=== PATIENT | male | born 1965 | race Caucasian/White ===

== ENCOUNTER 2021-11-29 01:09 | Inpatient (IN) | payer BC ==
[~2021-11-29] VITALS: Ht 172.7 cm; Wt 77.1 kg
[2021-11-29] VITALS (10 sets, daily range): BP systolic 99–141; BP diastolic 44–62
[2021-11-29] MEDS ORDERED: SODIUM CHLORIDE 0.9% 250ML 250 ML IV ONE ×2 (02:15→18:45)
[2021-11-29 03:01] LABS: INR 1.01; PROTHROMBIN TIME 14.2 seconds (11.9-14.5)
[2021-11-29 03:13] LABS: ALBUMIN 2.6 g/dL (3.5-5.0); ALBUMIN/GLOBULIN RATIO 0.9 (0.8-2.0); ANION GAP 15.8 mmol/L (8-16); CALCIUM 7.9 mg/dL (8.4-10.2); CREATININE, SERUM 2.3 mg/dL (0.72-1.25)
[2021-11-29 03:15] LABS: POTASSIUM 6.8 mmol/L (3.5-5.1)
[2021-11-29] MEDS: SODIUM CHLORIDE 0.9% 1000ML 1,000 ML IV SCH ×2 (03:23→13:02)
[2021-11-29] MEDS ORDERED: SOD POLYSTYRENE SULFONATE SUSP 15 GM/60 ML BTL PO ONE (03:30)
[2021-11-29] MEDS ORDERED: JARDIANCE10 MG PO (04:53)
[2021-11-29] MEDS ORDERED: SIMVASTATIN20 MG PO (04:53)
[2021-11-29] MEDS ORDERED: LOPID600 MG PO (04:53)
[2021-11-29] MEDS ORDERED: DIOVAN160 MG PO (04:53)
[2021-11-29] MEDS ORDERED: METFORMIN HCL500 MG PO (04:53)
[2021-11-29] MEDS ORDERED: DEXTROSE 50% SYRINGE 50 ML IV PRN (05:00)
[2021-11-29 06:53] LABS: BASOPHILS % 0.5 % (0.0-1.0); EOSINOPHILS % 0.3 % (0.0-6.0); LYMPHOCYTES # (AUTO) 1.3 (1.0-3.2); LYMPHOCYTES % 14.7 % (18.0-39.1); MEAN CORPUSCULAR HEMOGLOBIN 21.3 pg (28-32); MEAN CORPUSCULAR HGB CONC 26.5 g/dL (31-35); MEAN CORPUSCULAR VOLUME 80.4 fL (81-99); MONOCYTES # (AUTO) 0.8 (0.2-0.8); MONOCYTES % 9.6 % (4.4-11.3); NEUTROPHILS # (AUTO) 6.5 (2.1-6.9); NEUTROPHILS % 74.6 % (38.7-80.0); PLATELET COUNT 366 x10e3/uL (140-360); RED BLOOD COUNT 2.35 x10e6/uL (4.3-5.7); RED CELL DISTRIBUTION WIDTH 18.6 % (11.7-14.4)
[2021-11-29 06:57] LABS: HEMATOCRIT 18.9 % (38.2-49.6)
[2021-11-29] MEDS ORDERED: SODIUM CHLORIDE 0.9% 250ML 250 ML ONE ×2 (08:27→20:20)
[2021-11-29] MEDS ORDERED: VALSARTAN 160 MG TAB PO SCH (09:00)
[2021-11-29] MEDS ORDERED: METFORMIN HCL 500 MG TAB PO SCH (09:00)
[2021-11-29] MEDS ORDERED: EMPAGLIFLOZIN 10 MG TABLET PO SCH (09:00)
[2021-11-29] MEDS ORDERED: GEMFIBROZIL 600 MG TAB PO SCH (09:00)
[2021-11-29] MEDS: INSULIN LISPRO 100 UNIT/1 ML 3ML VIAL SQ SCH ×4 (09:51→21:25)
[2021-11-29] MEDS ORDERED: STERILE WATER IV SCH (15:00)
[2021-11-29] MEDS ORDERED: SODIUM BICARBONATE IV SCH (15:00)
[2021-11-29] MEDS: SODIUM BICARBONATE 8.4% 150 ML in STERILE WATER IV SOLN 1,000 ML IV SCH (15:30)
[2021-11-29 16:05] LABS: ANION GAP 15.2 mmol/L (8-16); CALCIUM 7.9 mg/dL (8.4-10.2); CREATININE, SERUM 2.02 mg/dL (0.72-1.25)
[2021-11-29 16:10] LABS: POTASSIUM 6.2 mmol/L (3.5-5.1)
[2021-11-29 16:14] LABS: BASOPHILS # (AUTO) 0.1 (0.0-0.1); BASOPHILS % 0.5 % (0.0-1.0); EOSINOPHILS # (AUTO) 0.1 (0.0-0.4); EOSINOPHILS % 1.4 % (0.0-6.0); LYMPHOCYTES # (AUTO) 1.6 (1.0-3.2); LYMPHOCYTES % 16.7 % (18.0-39.1); MEAN CORPUSCULAR HEMOGLOBIN 22.6 pg (28-32); MEAN CORPUSCULAR HGB CONC 28.3 g/dL (31-35); MEAN CORPUSCULAR VOLUME 79.7 fL (81-99); MONOCYTES # (AUTO) 0.9 (0.2-0.8); MONOCYTES % 9.5 % (4.4-11.3); NEUTROPHILS # (AUTO) 6.9 (2.1-6.9); NEUTROPHILS % 71.5 % (38.7-80.0); PLATELET COUNT 354 x10e3/uL (140-360); RED BLOOD COUNT 3.01 x10e6/uL (4.3-5.7); RED CELL DISTRIBUTION WIDTH 18.6 % (11.7-14.4)
[2021-11-29 16:19] LABS: HEMOGLOBIN 6.8 g/dL (14.0-18.0)
[2021-11-29] MEDS ORDERED: DEXTROSE 50% SYRINGE 50 ML IV STA (16:26)
[2021-11-29] MEDS ORDERED: INSULIN REGULAR, HUMAN 100 UNIT/1 ML SQ STA (16:26)
[2021-11-29] MEDS ORDERED: CALCIUM GLUC 1 G/50 ML NACL 50 ML IV ONE (17:00)
[2021-11-29] MEDS ORDERED: LACTULOSE SYRUP 20 GM/30 ML UDC PO ONE (17:00)
[2021-11-29] MEDS ORDERED: SOD POLYSTYRENE SULFONATE SUSP 15 GM/60 ML BTL PR ONE (17:00)
[2021-11-29] MEDS: SIMVASTATIN 20 MG TAB PO SCH (20:28)
[2021-11-29] MEDS: INSULIN GLARGINE 100 UNITS/ML VIAL SQ SCH (21:25)
[2021-11-30] VITALS (7 sets, daily range): BP systolic 98–112; BP diastolic 52–59
[2021-11-30 01:39] LABS: FERRITIN 24.24 ng/mL (21.81-274.66)
[2021-11-30] MEDS: SODIUM BICARBONATE 8.4% 150 ML in STERILE WATER IV SOLN 1,000 ML IV SCH ×2 (06:40→22:16)
[2021-11-30 07:06] LABS: ALBUMIN 2.6 g/dL (3.5-5.0); ALBUMIN/GLOBULIN RATIO 0.8 (0.8-2.0); ANION GAP 13.3 mmol/L (8-16); CALCIUM 8.1 mg/dL (8.4-10.2); CREATININE, SERUM 1.73 mg/dL (0.72-1.25); POTASSIUM 5.3 mmol/L (3.5-5.1)
[2021-11-30] MEDS: INSULIN LISPRO 100 UNIT/1 ML 3ML VIAL SQ SCH ×4 (07:30→21:00)
[2021-11-30] MEDS ORDERED: LACTULOSE SYRUP 20 GM/30 ML UDC PO ONE (10:45)
[2021-11-30] MEDS ORDERED: SOD POLYSTYRENE SULFONATE SUSP 15 GM/60 ML BTL PO ONE (10:45)
[2021-11-30 15:45] LABS: FREE T4 (FREE THYROXINE) 0.79 ng/dL (0.8-1.8); THYROID STIMULATING HORMONE 2.389 uIU/mL (0.350-4.940)
[2021-11-30] MEDS: SODIUM BICARBONATE 650 MG TAB PO SCH ×2 (18:29→22:30)
[2021-11-30] MEDS: INSULIN GLARGINE 100 UNITS/ML VIAL SQ SCH (21:00)
[2021-11-30] MEDS: SIMVASTATIN 20 MG TAB PO SCH (22:30)
[2021-12-01] VITALS (7 sets, daily range): BP systolic 93–114; BP diastolic 49–64
[2021-12-01 06:59] LABS: BASOPHILS # (AUTO) 0.1 (0.0-0.1); BASOPHILS % 0.8 % (0.0-1.0); EOSINOPHILS # (AUTO) 0.2 (0.0-0.4); EOSINOPHILS % 2.6 % (0.0-6.0); HEMATOCRIT 24.2 % (38.2-49.6); HEMOGLOBIN 7.3 g/dL (14.0-18.0); LYMPHOCYTES # (AUTO) 1.3 (1.0-3.2); LYMPHOCYTES % 17.1 % (18.0-39.1); MEAN CORPUSCULAR HEMOGLOBIN 23.2 pg (28-32); MEAN CORPUSCULAR HGB CONC 30.2 g/dL (31-35); MEAN CORPUSCULAR VOLUME 76.8 fL (81-99); MONOCYTES # (AUTO) 0.7 (0.2-0.8); MONOCYTES % 9.6 % (4.4-11.3); NEUTROPHILS # (AUTO) 5.3 (2.1-6.9); NEUTROPHILS % 69.6 % (38.7-80.0); PLATELET COUNT 302 x10e3/uL (140-360); RED BLOOD COUNT 3.15 x10e6/uL (4.3-5.7); RED CELL DISTRIBUTION WIDTH 18.4 % (11.7-14.4)
[2021-12-01 07:09] LABS: ANION GAP 14.5 mmol/L (8-16); CREATININE, SERUM 1.56 mg/dL (0.72-1.25); POTASSIUM 4.5 mmol/L (3.5-5.1)
[2021-12-01] MEDS: INSULIN LISPRO 100 UNIT/1 ML 3ML VIAL SQ SCH ×4 (07:30→20:20)
[2021-12-01] MEDS: SODIUM BICARBONATE 650 MG TAB PO SCH ×3 (08:46→21:24)
[2021-12-01] MEDS: PANTOPRAZOLE SOD 40 MG TABEC PO SCH (08:47)
[2021-12-01] MEDS: SODIUM FERRIC GLUCONATE COMPLX 125 MG in SODIUM CHLORIDE 0.9% 100 ML IV SCH (08:48)
[2021-12-01] MEDS ORDERED: SODIUM CHLORIDE 0.9% 250ML 250 ML IV ONE (16:45)
[2021-12-01] MEDS ORDERED: BISACODYL 5 MG TAB EC PO ONE (20:00)
[2021-12-01] MEDS: INSULIN GLARGINE 100 UNITS/ML VIAL SQ SCH (20:20)
[2021-12-01] MEDS: SIMVASTATIN 20 MG TAB PO SCH (21:24)
[2021-12-01] MEDS ORDERED: CITRATE OF MAGNESIA 300ML BOTTLE PO ONE (23:00)
[2021-12-02] VITALS (8 sets, daily range): BP systolic 110–119; BP diastolic 57–65
[2021-12-02 06:13] LABS: BASOPHILS # (AUTO) 0.1 (0.0-0.1); BASOPHILS % 0.9 % (0.0-1.0); EOSINOPHILS # (AUTO) 0.2 (0.0-0.4); EOSINOPHILS % 2.1 % (0.0-6.0); HEMATOCRIT 33.9 % (38.2-49.6); LYMPHOCYTES # (AUTO) 2.2 (1.0-3.2); LYMPHOCYTES % 19.7 % (18.0-39.1); MEAN CORPUSCULAR HEMOGLOBIN 23.8 pg (28-32); MEAN CORPUSCULAR HGB CONC 29.5 g/dL (31-35); MEAN CORPUSCULAR VOLUME 80.7 fL (81-99); MONOCYTES % 9.3 % (4.4-11.3); NEUTROPHILS # (AUTO) 7.4 (2.1-6.9); NEUTROPHILS % 67.6 % (38.7-80.0); PLATELET COUNT 396 x10e3/uL (140-360); RED CELL DISTRIBUTION WIDTH 18.9 % (11.7-14.4)
[2021-12-02 06:41] LABS: ALBUMIN 3.1 g/dL (3.5-5.0); ALBUMIN/GLOBULIN RATIO 0.8 (0.8-2.0); ANION GAP 17.2 mmol/L (8-16); CALCIUM 8.4 mg/dL (8.4-10.2); CREATININE, SERUM 1.73 mg/dL (0.72-1.25); POTASSIUM 4.2 mmol/L (3.5-5.1)
[2021-12-02] MEDS ORDERED: CITRATE OF MAGNESIA 300ML BOTTLE PO ONE (07:00)
[2021-12-02] MEDS: PANTOPRAZOLE SOD 40 MG TABEC PO SCH (07:30)
[2021-12-02] MEDS: INSULIN LISPRO 100 UNIT/1 ML 3ML VIAL SQ SCH ×4 (07:30→21:30)
[2021-12-02] MEDS: SODIUM BICARBONATE 650 MG TAB PO SCH ×3 (08:35→21:30)
[2021-12-02] MEDS: SODIUM FERRIC GLUCONATE COMPLX 125 MG in SODIUM CHLORIDE 0.9% 100 ML IV SCH (09:00)
[2021-12-02] MEDS ORDERED: HYOSCYAMINE SULFATE 0.5 MG/ML INJ ONE (11:31)
[2021-12-02] MEDS ORDERED: MIDAZOLAM HCL 2 MG/2 ML VIAL ONE (13:44)
[2021-12-02] MEDS ORDERED: PROPOFOL IV EMULSION 10 MG/ML 20 ML VIAL ONE (13:44)
[2021-12-02] MEDS ORDERED: LIDOCAINE HCL 2% LOCAL INJ 5 ML SDV VIAL INJ ONE (13:44)
[2021-12-02] MEDS ORDERED: FENTANYL CITRATE/PF 100MCG/2 ML INJ ONE (13:44)
[2021-12-02] MEDS ORDERED: SODIUM CHLORIDE 0.9% 1000ML 1,000 ML IV ONE (14:30)
[2021-12-02] MEDS ORDERED: IOPAMIDOL 370 MG/ML 100 ML INFUS..BTL INJ ONE (14:56)
[2021-12-02] MEDS: INSULIN GLARGINE 100 UNITS/ML VIAL SQ SCH (21:30)
[2021-12-02] MEDS: SIMVASTATIN 20 MG TAB PO SCH (21:30)
[2021-12-03] VITALS (8 sets, daily range): BP systolic 107–125; BP diastolic 52–64
[2021-12-03 07:15] LABS: BASOPHILS # (AUTO) 0.1 (0.0-0.1); BASOPHILS % 0.7 % (0.0-1.0); EOSINOPHILS # (AUTO) 0.2 (0.0-0.4); EOSINOPHILS % 2.1 % (0.0-6.0); HEMATOCRIT 29.6 % (38.2-49.6); HEMOGLOBIN 8.7 g/dL (14.0-18.0); LYMPHOCYTES # (AUTO) 1.3 (1.0-3.2); LYMPHOCYTES % 16.3 % (18.0-39.1); MEAN CORPUSCULAR HEMOGLOBIN 23.7 pg (28-32); MEAN CORPUSCULAR HGB CONC 29.4 g/dL (31-35); MEAN CORPUSCULAR VOLUME 80.7 fL (81-99); MONOCYTES # (AUTO) 0.8 (0.2-0.8); NEUTROPHILS # (AUTO) 5.7 (2.1-6.9); NEUTROPHILS % 70.5 % (38.7-80.0); PLATELET COUNT 293 x10e3/uL (140-360); RED BLOOD COUNT 3.67 x10e6/uL (4.3-5.7); RED CELL DISTRIBUTION WIDTH 19.4 % (11.7-14.4)
[2021-12-03] MEDS: INSULIN LISPRO 100 UNIT/1 ML 3ML VIAL SQ SCH ×4 (07:30→21:30)
[2021-12-03 07:38] LABS: ANION GAP 14.4 mmol/L (8-16); CALCIUM 8.1 mg/dL (8.4-10.2); CREATININE, SERUM 1.53 mg/dL (0.72-1.25); POTASSIUM 5.4 mmol/L (3.5-5.1)
[2021-12-03] MEDS: SODIUM FERRIC GLUCONATE COMPLX 125 MG in SODIUM CHLORIDE 0.9% 100 ML IV SCH (08:29)
[2021-12-03] MEDS: PANTOPRAZOLE SOD 40 MG TABEC PO SCH (08:29)
[2021-12-03] MEDS: SODIUM BICARBONATE 650 MG TAB PO SCH ×3 (08:29→21:37)
[2021-12-03] MEDS: INSULIN GLARGINE 100 UNITS/ML VIAL SQ SCH (21:30)
[2021-12-03] MEDS: SIMVASTATIN 20 MG TAB PO SCH (21:37)
[2021-12-04] VITALS (8 sets, daily range): BP systolic 111–125; BP diastolic 55–65
[2021-12-04] MEDS ORDERED: FOLIC ACID 1 MG TAB PO ONE (01:00)
[2021-12-04] MEDS ORDERED: CYANOCOBALAMIN INJ 1,000 MCG/ML VIAL IM ONE (01:00)
[2021-12-04 06:01] LABS: BASOPHILS # (AUTO) 0.1 (0.0-0.1); BASOPHILS % 0.6 % (0.0-1.0); EOSINOPHILS # (AUTO) 0.2 (0.0-0.4); EOSINOPHILS % 2.3 % (0.0-6.0); HEMATOCRIT 30.1 % (38.2-49.6); HEMOGLOBIN 8.8 g/dL (14.0-18.0); LYMPHOCYTES # (AUTO) 1.4 (1.0-3.2); LYMPHOCYTES % 16.5 % (18.0-39.1); MEAN CORPUSCULAR HEMOGLOBIN 23.7 pg (28-32); MEAN CORPUSCULAR HGB CONC 29.2 g/dL (31-35); MEAN CORPUSCULAR VOLUME 81.1 fL (81-99); MONOCYTES # (AUTO) 0.8 (0.2-0.8); MONOCYTES % 9.4 % (4.4-11.3); NEUTROPHILS # (AUTO) 5.8 (2.1-6.9); NEUTROPHILS % 70.8 % (38.7-80.0); PLATELET COUNT 273 x10e3/uL (140-360); RED BLOOD COUNT 3.71 x10e6/uL (4.3-5.7); RED CELL DISTRIBUTION WIDTH 20.1 % (11.7-14.4)
[2021-12-04 06:26] LABS: ANION GAP 13.9 mmol/L (8-16); CALCIUM 8.6 mg/dL (8.4-10.2); CREATININE, SERUM 1.46 mg/dL (0.72-1.25); POTASSIUM 4.9 mmol/L (3.5-5.1)
[2021-12-04] MEDS: INSULIN LISPRO 100 UNIT/1 ML 3ML VIAL SQ SCH ×4 (07:30→21:00)
[2021-12-04] MEDS: FOLIC ACID 1 MG TAB PO SCH (07:59)
[2021-12-04] MEDS: SODIUM BICARBONATE 650 MG TAB PO SCH ×3 (07:59→21:45)
[2021-12-04] MEDS: PANTOPRAZOLE SOD 40 MG TABEC PO SCH (07:59)
[2021-12-04] MEDS: CYANOCOBALAMIN INJ 1,000 MCG/ML VIAL IM SCH (08:00)
[2021-12-04] MEDS: IRON SUCROSE 100 MG in SODIUM CHLORIDE 0.9% 100 ML IV SCH (08:00)
[2021-12-04] MEDS: INSULIN GLARGINE 100 UNITS/ML VIAL SQ SCH (21:00)
[2021-12-04] MEDS: SIMVASTATIN 20 MG TAB PO SCH (21:45)
[2021-12-05] VITALS (7 sets, daily range): BP systolic 113–124; BP diastolic 53–64
[2021-12-05] MEDS: INSULIN LISPRO 100 UNIT/1 ML 3ML VIAL SQ SCH ×4 (07:30→21:00)
[2021-12-05] MEDS: SODIUM BICARBONATE 650 MG TAB PO SCH ×3 (10:02→21:00)
[2021-12-05] MEDS: PANTOPRAZOLE SOD 40 MG TABEC PO SCH (10:02)
[2021-12-05] MEDS: FOLIC ACID 1 MG TAB PO SCH (10:02)
[2021-12-05] MEDS: IRON SUCROSE 100 MG in SODIUM CHLORIDE 0.9% 100 ML IV SCH (10:02)
[2021-12-05] MEDS: CYANOCOBALAMIN INJ 1,000 MCG/ML VIAL IM SCH (10:03)
[2021-12-05] MEDS ORDERED: MAGNESIUM HYDROXIDE 30 ML UDC PO ONE (18:20)
[2021-12-05] MEDS: INSULIN GLARGINE 100 UNITS/ML VIAL SQ SCH (21:00)
[2021-12-05] MEDS: SIMVASTATIN 20 MG TAB PO SCH (21:00)
[2021-12-06] VITALS (13 sets, daily range): BP systolic 89–123; BP diastolic 51–65
[2021-12-06] MEDS: INSULIN LISPRO 100 UNIT/1 ML 3ML VIAL SQ SCH ×4 (07:30→23:46)
[2021-12-06] MEDS: PANTOPRAZOLE SOD 40 MG TABEC PO SCH (07:30)
[2021-12-06] MEDS: IRON SUCROSE 100 MG in SODIUM CHLORIDE 0.9% 100 ML IV SCH (08:12)
[2021-12-06] MEDS: CYANOCOBALAMIN INJ 1,000 MCG/ML VIAL IM SCH (08:12)
[2021-12-06] MEDS: FOLIC ACID 1 MG TAB PO SCH (09:00)
[2021-12-06] MEDS: DEXTROSE 5%/0.9% SOD CHL 1,000 ML IV SCH ×2 (11:19→23:30)
[2021-12-06] MEDS ORDERED: SEVOFLURANE INHAL SOLN 250 ML PEN BTL ONE (12:16)
[2021-12-06] MEDS ORDERED: POVIDONE IODINE 0.05% 0.05 % ML PO ONE (12:16)
[2021-12-06] MEDS ORDERED: LIDOCAINE HCL 2% LOCAL INJ 5 ML SDV VIAL INJ ONE (12:16)
[2021-12-06] MEDS ORDERED: PHENYLEPHRINE HCL 1% 10 MG/ML VIAL ONE (12:16)
[2021-12-06] MEDS ORDERED: ONDANSETRON HCL INJ 2MG/ML 2ML 2 MG/ML VIAL ONE (12:16)
[2021-12-06] MEDS ORDERED: PROPOFOL IV EMULSION 10 MG/ML 20 ML VIAL ONE (12:16)
[2021-12-06] MEDS ORDERED: DEXAMETHASONE SOD PHOS INJ 4 MG/ML SDV ONE (12:16)
[2021-12-06] MEDS ORDERED: ROCURONIUM BROMIDE 10 MG/ML 5ML VIAL IV ONE (12:16)
[2021-12-06] MEDS ORDERED: FENTANYL CITRATE/PF 100MCG/2 ML INJ ONE (13:54)
[2021-12-06] MEDS ORDERED: MIDAZOLAM HCL 2 MG/2 ML VIAL ONE (13:54)
[2021-12-06] MEDS ORDERED: HEPARIN SOD/SOD CHLORIDE 1,000 ML ONE (14:37)
[2021-12-06] MEDS ORDERED: SODIUM CHLORIDE 0.9% 100 ML ONE (16:54)
[2021-12-06] MEDS ORDERED: MANNITOL 25% 12.5GM/50ML 0 ML ONE (16:59)
[2021-12-06] MEDS ORDERED: Vancomycin IV 1 GM VIAL ONE (17:01)
[2021-12-06] MEDS: SIMVASTATIN 20 MG TAB PO SCH (21:00)
[2021-12-06] MEDS ORDERED: SUGAMMADEX SODIUM 200 MG/2 ML VIAL IV ONE (21:26)
[2021-12-06] MEDS ORDERED: DIPHENHYDRAMINE HCL INJ 50 MG/ML VIAL IM PRN (21:45)
[2021-12-06] MEDS ORDERED: ACETAMINOPHEN 1000 MG/100 ML IV PRN (21:45)
[2021-12-06] MEDS ORDERED: ONDANSETRON HCL INJ 2MG/ML 2ML 2 MG/ML VIAL IV PRN (21:45)
[2021-12-06] MEDS ORDERED: NALOXONE HCL INJ 0.4 MG/ML AMP IV PRN (21:45)
[2021-12-06] MEDS: SODIUM CHLORIDE 0.9% 250ML IRRIG IR SCH (22:55)
[2021-12-06] MEDS: MORPHINE SULFATE 1 MG/ML 30ML PCA IV PRN (23:24)
[2021-12-06 23:36] LABS: BASOPHILS % 0.3 % (0.0-1.0); HEMATOCRIT 35.2 % (38.2-49.6); HEMOGLOBIN 10.7 g/dL (14.0-18.0); LYMPHOCYTES # (AUTO) 0.7 (1.0-3.2); LYMPHOCYTES % 4.6 % (18.0-39.1); MEAN CORPUSCULAR HEMOGLOBIN 27.1 pg (28-32); MEAN CORPUSCULAR HGB CONC 30.4 g/dL (31-35); MEAN CORPUSCULAR VOLUME 89.1 fL (81-99); MONOCYTES # (AUTO) 0.9 (0.2-0.8); MONOCYTES % 5.5 % (4.4-11.3); NEUTROPHILS # (AUTO) 13.9 (2.1-6.9); NEUTROPHILS % 89.3 % (38.7-80.0); PLATELET COUNT 300 x10e3/uL (140-360); RED BLOOD COUNT 3.95 x10e6/uL (4.3-5.7); RED CELL DISTRIBUTION WIDTH 19.3 % (11.7-14.4)
[2021-12-06] MEDS: INSULIN GLARGINE 100 UNITS/ML VIAL SQ SCH (23:45)
[2021-12-06] MEDS: SODIUM CHLORIDE 0.9% 1000ML 1,000 ML IV SCH (23:49)
[2021-12-06 23:56] LABS: ANION GAP 17.2 mmol/L (8-16); CREATININE, SERUM 1.69 mg/dL (0.72-1.25)
[2021-12-06 23:57] LABS: CALCIUM 6.6 mg/dL (8.4-10.2); POTASSIUM 5.2 mmol/L (3.5-5.1)
[2021-12-07] VITALS (20 sets, daily range): BP systolic 88–127; BP diastolic 49–92
[2021-12-07] MEDS ORDERED: CALCIUM CHLORIDE 10% 1.36 MEQ/ML 10ML SYR IV STA (00:22)
[2021-12-07] MEDS ORDERED: SODIUM CHLORIDE 0.9% IV ONE ×2 (00:30→00:45)
[2021-12-07] MEDS ORDERED: CALCIUM CHLORIDE IV ONE (00:45)
[2021-12-07] MEDS ORDERED: CALCIUM CHLORIDE 10% SYRINGE 20 ML IV ONE (01:05)
[2021-12-07] MEDS: SODIUM CHLORIDE 0.9% 250ML IRRIG IR SCH ×5 (02:14→21:51)
[2021-12-07] MEDS: MORPHINE SULFATE 1 MG/ML 30ML PCA IV PRN ×2 (05:21→19:00)
[2021-12-07] MEDS: SODIUM CHLORIDE 0.9% 1000ML 1,000 ML IV SCH (05:24)
[2021-12-07] MEDS ORDERED: MORPHINE SULFATE 1 MG/ML 30ML PCA ONE (05:26)
[2021-12-07 05:47] LABS: BASOPHILS % 0.1 % (0.0-1.0); HEMATOCRIT 33.8 % (38.2-49.6); HEMOGLOBIN 10.5 g/dL (14.0-18.0); LYMPHOCYTES # (AUTO) 0.8 (1.0-3.2); LYMPHOCYTES % 5.1 % (18.0-39.1); MEAN CORPUSCULAR HEMOGLOBIN 27.8 pg (28-32); MEAN CORPUSCULAR HGB CONC 31.1 g/dL (31-35); MEAN CORPUSCULAR VOLUME 89.4 fL (81-99); MONOCYTES # (AUTO) 0.8 (0.2-0.8); MONOCYTES % 5.3 % (4.4-11.3); NEUTROPHILS # (AUTO) 14.3 (2.1-6.9); NEUTROPHILS % 89.2 % (38.7-80.0); PLATELET COUNT 269 x10e3/uL (140-360); RED BLOOD COUNT 3.78 x10e6/uL (4.3-5.7); RED CELL DISTRIBUTION WIDTH 19.9 % (11.7-14.4)
[2021-12-07 06:22] LABS: ALBUMIN 2.1 g/dL (3.5-5.0); ALBUMIN/GLOBULIN RATIO 0.8 (0.8-2.0); CALCIUM 7.6 mg/dL (8.4-10.2); CREATININE, SERUM 2.06 mg/dL (0.72-1.25); MAGNESIUM 1.6 MG/DL (1.3-2.1); PHOSPHORUS 6.7 MG/DL (2.3-4.7)
[2021-12-07] MEDS: INSULIN LISPRO 100 UNIT/1 ML 3ML VIAL SQ SCH ×3 (07:30→18:21)
[2021-12-07] MEDS: PANTOPRAZOLE SOD 40 MG TABEC PO SCH (07:30)
[2021-12-07] MEDS: FOLIC ACID 1 MG TAB PO SCH (07:46)
[2021-12-07] MEDS: IRON SUCROSE 100 MG in SODIUM CHLORIDE 0.9% 100 ML IV SCH (09:31)
[2021-12-07] MEDS: CYANOCOBALAMIN INJ 1,000 MCG/ML VIAL IM SCH (09:36)
[2021-12-07] MEDS ORDERED: DEXTROSE 50% SYRINGE 50 ML IV STA (11:25)
[2021-12-07] MEDS ORDERED: SODIUM CHLORIDE 0.9% 1000ML 1,000 ML IV SCH (11:30)
[2021-12-07] MEDS ORDERED: MAGNESIUM SULFATE 2GM/50ML 50 ML IV ONE (11:45)
[2021-12-07 11:48] LABS: BASOPHILS % 0.2 % (0.0-1.0); HEMOGLOBIN 10.3 g/dL (14.0-18.0); LYMPHOCYTES # (AUTO) 1.4 (1.0-3.2); LYMPHOCYTES % 9.3 % (18.0-39.1); MEAN CORPUSCULAR HEMOGLOBIN 27.2 pg (28-32); MEAN CORPUSCULAR HGB CONC 30.3 g/dL (31-35); MEAN CORPUSCULAR VOLUME 89.9 fL (81-99); MONOCYTES # (AUTO) 1.2 (0.2-0.8); NEUTROPHILS # (AUTO) 12.1 (2.1-6.9); NEUTROPHILS % 82.2 % (38.7-80.0); PLATELET COUNT 283 x10e3/uL (140-360); RED BLOOD COUNT 3.78 x10e6/uL (4.3-5.7)
[2021-12-07 12:05] LABS: ANION GAP 14.1 mmol/L (8-16); CALCIUM 7.6 mg/dL (8.4-10.2); CREATININE, SERUM 2.46 mg/dL (0.72-1.25)
[2021-12-07 12:08] LABS: POTASSIUM 6.1 mmol/L (3.5-5.1)
[2021-12-07] MEDS ORDERED: INSULIN REGULAR, HUMAN 100 UNIT/1 ML IV ONE (12:30)
[2021-12-07] MEDS: SODIUM BICARBONATE 8.4% SYRING 150 ML in DEXTROSE 5% 1,000 ML IV SCH (13:48)
[2021-12-07 18:07] LABS: ALBUMIN/GLOBULIN RATIO 0.8 (0.8-2.0); ANION GAP 12.4 mmol/L (8-16); CALCIUM 7.4 mg/dL (8.4-10.2); CREATININE, SERUM 2.5 mg/dL (0.72-1.25)
[2021-12-07 18:14] LABS: POTASSIUM 5.4 mmol/L (3.5-5.1)
[2021-12-07] MEDS ORDERED: SODIUM CHLORIDE 0.9% 500ML 500 ML IV ONE (19:30)
[2021-12-07] MEDS: SIMVASTATIN 20 MG TAB PO SCH (20:39)
[2021-12-07] MEDS: INSULIN GLARGINE 100 UNITS/ML VIAL SQ SCH (20:49)
[2021-12-08] VITALS (47 sets, daily range): BP systolic 77–130; BP diastolic 45–87
[2021-12-08] MEDS: SODIUM BICARBONATE 8.4% SYRING 150 ML in DEXTROSE 5% 1,000 ML IV SCH ×2 (01:26→12:36)
[2021-12-08] MEDS: SODIUM CHLORIDE 0.9% 250ML IRRIG IR SCH ×6 (01:27→22:00)
[2021-12-08 05:01] LABS: BASOPHILS % 0.3 % (0.0-1.0); EOSINOPHILS # (AUTO) 0.1 (0.0-0.4); EOSINOPHILS % 0.5 % (0.0-6.0); HEMATOCRIT 26.2 % (38.2-49.6); HEMOGLOBIN 8.2 g/dL (14.0-18.0); LYMPHOCYTES # (AUTO) 0.8 (1.0-3.2); LYMPHOCYTES % 8.2 % (18.0-39.1); MEAN CORPUSCULAR HEMOGLOBIN 27.7 pg (28-32); MEAN CORPUSCULAR HGB CONC 31.3 g/dL (31-35); MEAN CORPUSCULAR VOLUME 88.5 fL (81-99); MONOCYTES # (AUTO) 0.8 (0.2-0.8); MONOCYTES % 7.7 % (4.4-11.3); NEUTROPHILS # (AUTO) 8.5 (2.1-6.9); PLATELET COUNT 195 x10e3/uL (140-360); RED BLOOD COUNT 2.96 x10e6/uL (4.3-5.7); RED CELL DISTRIBUTION WIDTH 20.8 % (11.7-14.4)
[2021-12-08 05:24] LABS: CALCIUM 7.3 mg/dL (8.4-10.2); CREATININE, SERUM 2.26 mg/dL (0.72-1.25)
[2021-12-08] MEDS: INSULIN LISPRO 100 UNIT/1 ML 3ML VIAL SQ SCH ×4 (05:59→18:00)
[2021-12-08] MEDS: PANTOPRAZOLE SOD 40 MG TABEC PO SCH (07:25)
[2021-12-08] MEDS: FOLIC ACID 1 MG TAB PO SCH (09:00)
[2021-12-08] MEDS: CYANOCOBALAMIN INJ 1,000 MCG/ML VIAL IM SCH (09:16)
[2021-12-08] MEDS: IRON SUCROSE 100 MG in SODIUM CHLORIDE 0.9% 100 ML IV SCH (09:17)
[2021-12-08] MEDS ORDERED: SODIUM CHLORIDE 0.9% 1000ML 1,000 ML IV SCH (09:45)
[2021-12-08] MEDS ORDERED: SODIUM CHLORIDE 0.9% 1000ML 1,000 ML IV ONE (11:15)
[2021-12-08 15:05] LABS: ALBUMIN 1.8 g/dL (3.5-5.0); ALBUMIN/GLOBULIN RATIO 0.7 (0.8-2.0); ANION GAP 12.4 mmol/L (8-16); CALCIUM 7.3 mg/dL (8.4-10.2); CREATININE, SERUM 2.21 mg/dL (0.72-1.25)
[2021-12-08 15:10] LABS: POTASSIUM 5.4 mmol/L (3.5-5.1)
[2021-12-08] MEDS ORDERED: ALBUMIN 5% 0.05 GM/ML BTL IV ONE (16:00)
[2021-12-08] MEDS ORDERED: ALBUMIN 5% 250ML 500 ML IV ONE (16:30)
[2021-12-08] MEDS ORDERED: BUMETANIDE INJ 0.25MG/ML 4ML VIAL IV ONE (17:00)
[2021-12-08] MEDS: SIMVASTATIN 20 MG TAB PO SCH (21:00)
[2021-12-08] MEDS: INSULIN GLARGINE 100 UNITS/ML VIAL SQ SCH (21:06)
[2021-12-09] VITALS (29 sets, daily range): BP systolic 93–138; BP diastolic 43–65
[2021-12-09] MEDS: SODIUM BICARBONATE 8.4% SYRING 150 ML in DEXTROSE 5% 1,000 ML IV SCH (00:43)
[2021-12-09] MEDS: MORPHINE SULFATE 1 MG/ML 30ML PCA IV PRN (01:41)
[2021-12-09] MEDS: SODIUM CHLORIDE 0.9% 250ML IRRIG IR SCH ×4 (02:13→13:25)
[2021-12-09 05:51] LABS: BASOPHILS % 0.6 % (0.0-1.0); EOSINOPHILS # (AUTO) 0.2 (0.0-0.4); EOSINOPHILS % 2.6 % (0.0-6.0); HEMATOCRIT 23.9 % (38.2-49.6); HEMOGLOBIN 7.1 g/dL (14.0-18.0); LYMPHOCYTES # (AUTO) 0.8 (1.0-3.2); LYMPHOCYTES % 11.6 % (18.0-39.1); MEAN CORPUSCULAR HEMOGLOBIN 26.9 pg (28-32); MEAN CORPUSCULAR HGB CONC 29.7 g/dL (31-35); MEAN CORPUSCULAR VOLUME 90.5 fL (81-99); MONOCYTES # (AUTO) 0.6 (0.2-0.8); MONOCYTES % 8.7 % (4.4-11.3); NEUTROPHILS # (AUTO) 5.5 (2.1-6.9); NEUTROPHILS % 76.4 % (38.7-80.0); PLATELET COUNT 171 x10e3/uL (140-360); RED BLOOD COUNT 2.64 x10e6/uL (4.3-5.7); RED CELL DISTRIBUTION WIDTH 20.7 % (11.7-14.4)
[2021-12-09] MEDS: INSULIN LISPRO 100 UNIT/1 ML 3ML VIAL SQ SCH ×5 (06:00→23:28)
[2021-12-09 06:16] LABS: ALBUMIN/GLOBULIN RATIO 0.9 (0.8-2.0); CALCIUM 7.1 mg/dL (8.4-10.2); CREATININE, SERUM 1.87 mg/dL (0.72-1.25); MAGNESIUM 1.6 MG/DL (1.3-2.1); PHOSPHORUS 3.5 MG/DL (2.3-4.7)
[2021-12-09] MEDS: FOLIC ACID 1 MG TAB PO SCH (07:25)
[2021-12-09] MEDS: PANTOPRAZOLE SOD 40 MG TABEC PO SCH (07:25)
[2021-12-09] MEDS ORDERED: SODIUM CHLORIDE 0.9% 1000ML 1,000 ML IV ONE (08:30)
[2021-12-09] MEDS: DEXTROSE 5%/0.9% SOD CHL 1,000 ML IV SCH ×2 (08:47→19:20)
[2021-12-09] MEDS: CYANOCOBALAMIN INJ 1,000 MCG/ML VIAL IM SCH (08:47)
[2021-12-09] MEDS ORDERED: MORPHINE SULFATE 1 MG/ML 30ML PCA IV PRN (15:15)
[2021-12-09] MEDS: SIMVASTATIN 20 MG TAB PO SCH (20:58)
[2021-12-09] MEDS: BISACODYL 10 MG SUPP PR SCH (21:05)
[2021-12-09] MEDS: INSULIN GLARGINE 100 UNITS/ML VIAL SQ SCH (21:06)
[2021-12-10] VITALS (24 sets, daily range): BP systolic 93–117; BP diastolic 37–70
[2021-12-10] MEDS: DEXTROSE 5%/0.9% SOD CHL 1,000 ML IV SCH ×2 (04:58→15:42)
[2021-12-10] MEDS: INSULIN LISPRO 100 UNIT/1 ML 3ML VIAL SQ SCH ×3 (05:01→17:48)
[2021-12-10 06:20] LABS: BASOPHILS % 0.5 % (0.0-1.0); EOSINOPHILS # (AUTO) 0.2 (0.0-0.4); EOSINOPHILS % 3.6 % (0.0-6.0); HEMATOCRIT 27.6 % (38.2-49.6); HEMOGLOBIN 8.1 g/dL (14.0-18.0); LYMPHOCYTES % 15.4 % (18.0-39.1); MEAN CORPUSCULAR HGB CONC 29.3 g/dL (31-35); MONOCYTES # (AUTO) 0.5 (0.2-0.8); MONOCYTES % 7.7 % (4.4-11.3); NEUTROPHILS # (AUTO) 4.8 (2.1-6.9); NEUTROPHILS % 72.5 % (38.7-80.0); PLATELET COUNT 222 x10e3/uL (140-360); RED CELL DISTRIBUTION WIDTH 20.1 % (11.7-14.4)
[2021-12-10 06:28] LABS: ANION GAP 13.3 mmol/L (8-16); CALCIUM 7.5 mg/dL (8.4-10.2); CREATININE, SERUM 1.91 mg/dL (0.72-1.25); POTASSIUM 4.3 mmol/L (3.5-5.1)
[2021-12-10] MEDS: PANTOPRAZOLE SOD 40 MG TABEC PO SCH (07:10)
[2021-12-10] MEDS: BISACODYL 10 MG SUPP PR SCH (08:00)
[2021-12-10] MEDS: FOLIC ACID 1 MG TAB PO SCH (08:04)
[2021-12-10] MEDS: CYANOCOBALAMIN INJ 1,000 MCG/ML VIAL IM SCH (08:30)
[2021-12-10] MEDS: INSULIN GLARGINE 100 UNITS/ML VIAL SQ SCH (21:27)
[2021-12-10] MEDS: SIMVASTATIN 20 MG TAB PO SCH (21:27)
[2021-12-11] VITALS (14 sets, daily range): BP systolic 93–117; BP diastolic 52–59
[2021-12-11] MEDS: DEXTROSE 5%/0.9% SOD CHL 1,000 ML IV SCH ×3 (01:55→22:00)
[2021-12-11] MEDS: INSULIN LISPRO 100 UNIT/1 ML 3ML VIAL SQ SCH ×4 (07:30→21:00)
[2021-12-11] MEDS: PANTOPRAZOLE SOD 40 MG TABEC PO SCH (08:12)
[2021-12-11] MEDS: CYANOCOBALAMIN INJ 1,000 MCG/ML VIAL IM SCH (08:12)
[2021-12-11] MEDS: FOLIC ACID 1 MG TAB PO SCH (08:12)
[2021-12-11 10:01] LABS: BASOPHILS % 0.7 % (0.0-1.0); EOSINOPHILS # (AUTO) 0.3 (0.0-0.4); EOSINOPHILS % 4.6 % (0.0-6.0); HEMATOCRIT 25.4 % (38.2-49.6); HEMOGLOBIN 7.6 g/dL (14.0-18.0); LYMPHOCYTES # (AUTO) 0.8 (1.0-3.2); MEAN CORPUSCULAR HEMOGLOBIN 27.4 pg (28-32); MEAN CORPUSCULAR HGB CONC 29.9 g/dL (31-35); MEAN CORPUSCULAR VOLUME 91.7 fL (81-99); MONOCYTES # (AUTO) 0.5 (0.2-0.8); MONOCYTES % 9.2 % (4.4-11.3); NEUTROPHILS % 71.3 % (38.7-80.0); PLATELET COUNT 237 x10e3/uL (140-360); RED BLOOD COUNT 2.77 x10e6/uL (4.3-5.7); RED CELL DISTRIBUTION WIDTH 19.3 % (11.7-14.4)
[2021-12-11 10:31] LABS: ALBUMIN 1.8 g/dL (3.5-5.0); ALBUMIN/GLOBULIN RATIO 0.8 (0.8-2.0); ANION GAP 11.1 mmol/L (8-16); CALCIUM 7.2 mg/dL (8.4-10.2); CREATININE, SERUM 1.71 mg/dL (0.72-1.25); POTASSIUM 4.1 mmol/L (3.5-5.1)
[2021-12-11] MEDS: SIMVASTATIN 20 MG TAB PO SCH (21:00)
[2021-12-11] MEDS: INSULIN GLARGINE 100 UNITS/ML VIAL SQ SCH (21:00)
[2021-12-12] VITALS (8 sets, daily range): BP systolic 105–118; BP diastolic 62–75
[2021-12-12 05:50] LABS: BASOPHILS # (AUTO) 0.1 (0.0-0.1); BASOPHILS % 0.7 % (0.0-1.0); EOSINOPHILS # (AUTO) 0.3 (0.0-0.4); EOSINOPHILS % 4.6 % (0.0-6.0); HEMOGLOBIN 8.5 g/dL (14.0-18.0); LYMPHOCYTES # (AUTO) 1.3 (1.0-3.2); LYMPHOCYTES % 18.4 % (18.0-39.1); MEAN CORPUSCULAR HGB CONC 30.4 g/dL (31-35); MEAN CORPUSCULAR VOLUME 88.9 fL (81-99); MONOCYTES # (AUTO) 0.6 (0.2-0.8); MONOCYTES % 8.6 % (4.4-11.3); NEUTROPHILS # (AUTO) 4.8 (2.1-6.9); NEUTROPHILS % 67.1 % (38.7-80.0); PLATELET COUNT 307 x10e3/uL (140-360); RED BLOOD COUNT 3.15 x10e6/uL (4.3-5.7); RED CELL DISTRIBUTION WIDTH 19.4 % (11.7-14.4)
[2021-12-12] MEDS: HYDROMORPHONE 1MG/1ML INJ IV PRN ×2 (06:13→20:03)
[2021-12-12 06:33] LABS: ALBUMIN 1.8 g/dL (3.5-5.0); ALBUMIN/GLOBULIN RATIO 0.7 (0.8-2.0); ANION GAP 12.4 mmol/L (8-16); CALCIUM 7.3 mg/dL (8.4-10.2); CREATININE, SERUM 1.84 mg/dL (0.72-1.25); POTASSIUM 4.4 mmol/L (3.5-5.1)
[2021-12-12] MEDS: DEXTROSE 5%/0.9% SOD CHL 1,000 ML IV SCH ×2 (08:29→16:41)
[2021-12-12 09:02] LABS: MAGNESIUM 1.7 MG/DL (1.3-2.1); PHOSPHORUS 2.1 MG/DL (2.3-4.7)
[2021-12-12] MEDS: PANTOPRAZOLE SOD 40 MG TABEC PO SCH (10:09)
[2021-12-12] MEDS: FOLIC ACID 1 MG TAB PO SCH (10:10)
[2021-12-12] MEDS: SPIRONOLACTONE 25 MG TAB PO SCH ×2 (10:10→17:25)
[2021-12-12] MEDS: CYANOCOBALAMIN INJ 1,000 MCG/ML VIAL IM SCH (10:10)
[2021-12-12] MEDS: INSULIN LISPRO 100 UNIT/1 ML 3ML VIAL SQ SCH ×4 (10:11→21:30)
[2021-12-12] MEDS: HYDROCODONE/APAP 7.5MG-325MG 1 EA TAB PO PRN (13:00)
[2021-12-12] MEDS: INSULIN GLARGINE 100 UNITS/ML VIAL SQ SCH (21:30)
[2021-12-12] MEDS: SIMVASTATIN 20 MG TAB PO SCH (21:31)
[2021-12-13] VITALS (7 sets, daily range): BP systolic 102–124; BP diastolic 54–69
[2021-12-13] MEDS: DEXTROSE 5%/0.9% SOD CHL 1,000 ML IV SCH (05:07)
[2021-12-13] MEDS: HYDROMORPHONE 1MG/1ML INJ IV PRN ×2 (06:28→11:55)
[2021-12-13] MEDS: INSULIN LISPRO 100 UNIT/1 ML 3ML VIAL SQ SCH ×4 (07:30→21:03)
[2021-12-13] MEDS: PANTOPRAZOLE SOD 40 MG TABEC PO SCH (09:27)
[2021-12-13] MEDS: CYANOCOBALAMIN INJ 1,000 MCG/ML VIAL IM SCH (09:27)
[2021-12-13] MEDS: FOLIC ACID 1 MG TAB PO SCH (09:29)
[2021-12-13] MEDS: SPIRONOLACTONE 25 MG TAB PO SCH ×3 (09:29→20:52)
[2021-12-13] MEDS ORDERED: FIASP 100100 UNIT/1 SC (13:13)
[2021-12-13] MEDS: HYDROCODONE/APAP 7.5MG-325MG 1 EA TAB PO PRN (19:26)
[2021-12-13] MEDS: SIMVASTATIN 20 MG TAB PO SCH (21:00)
[2021-12-13] MEDS: INSULIN GLARGINE 100 UNITS/ML VIAL SQ SCH (21:04)
[2021-12-14] VITALS (8 sets, daily range): BP systolic 106–119; BP diastolic 45–61
[2021-12-14] MEDS: HYDROCODONE/APAP 7.5MG-325MG 1 EA TAB PO PRN ×2 (00:45→20:13)
[2021-12-14 06:02] LABS: BASOPHILS # (AUTO) 0.1 (0.0-0.1); BASOPHILS % 0.7 % (0.0-1.0); EOSINOPHILS # (AUTO) 0.3 (0.0-0.4); EOSINOPHILS % 3.3 % (0.0-6.0); HEMATOCRIT 30.6 % (38.2-49.6); HEMOGLOBIN 9.2 g/dL (14.0-18.0); LYMPHOCYTES # (AUTO) 1.6 (1.0-3.2); LYMPHOCYTES % 18.9 % (18.0-39.1); MEAN CORPUSCULAR HEMOGLOBIN 26.9 pg (28-32); MEAN CORPUSCULAR HGB CONC 30.1 g/dL (31-35); MEAN CORPUSCULAR VOLUME 89.5 fL (81-99); MONOCYTES # (AUTO) 0.8 (0.2-0.8); MONOCYTES % 9.8 % (4.4-11.3); NEUTROPHILS # (AUTO) 5.7 (2.1-6.9); NEUTROPHILS % 66.8 % (38.7-80.0); PLATELET COUNT 365 x10e3/uL (140-360); RED BLOOD COUNT 3.42 x10e6/uL (4.3-5.7); RED CELL DISTRIBUTION WIDTH 19.1 % (11.7-14.4)
[2021-12-14 06:40] LABS: CALCIUM 7.8 mg/dL (8.4-10.2); CREATININE, SERUM 1.75 mg/dL (0.72-1.25)
[2021-12-14] MEDS: PANTOPRAZOLE SOD 40 MG TABEC PO SCH (07:30)
[2021-12-14] MEDS: INSULIN LISPRO 100 UNIT/1 ML 3ML VIAL SQ SCH ×4 (07:30→21:24)
[2021-12-14 08:01] LABS: PHOSPHORUS 2.9 MG/DL (2.3-4.7)
[2021-12-14] MEDS ORDERED: ONDANSETRON HCL 4 MG ORAL DISINTEGRATING TAB PO PRN (08:30)
[2021-12-14] MEDS: CYANOCOBALAMIN INJ 1,000 MCG/ML VIAL IM SCH (09:00)
[2021-12-14] MEDS: SPIRONOLACTONE 25 MG TAB PO SCH ×3 (09:00→22:16)
[2021-12-14] MEDS: FOLIC ACID 1 MG TAB PO SCH (09:00)
[2021-12-14] MEDS: FUROSEMIDE 40 MG TAB PO SCH (13:24)
[2021-12-14] MEDS ORDERED: ALDACTONE25 MG PO (18:19)
[2021-12-14] MEDS ORDERED: PROTONIX20 MG PO (18:19)
[2021-12-14] MEDS ORDERED: FUROSEMIDE40 MG PO (18:19)
[2021-12-14] MEDS: SIMVASTATIN 20 MG TAB PO SCH (21:22)
[2021-12-14] MEDS: INSULIN GLARGINE 100 UNITS/ML VIAL SQ SCH (21:25)
[2021-12-15 00:02] VITALS: BP 120/59
[2021-12-15 04:30] VITALS: BP 123/53
[2021-12-15 08:02] VITALS: BP 112/72
[2021-12-15 08:26] VITALS: BP 112/72
[2021-12-15] MEDS: FUROSEMIDE 40 MG TAB PO SCH (09:25)
[2021-12-15] MEDS: CYANOCOBALAMIN INJ 1,000 MCG/ML VIAL IM SCH (09:26)
[2021-12-15] MEDS: SPIRONOLACTONE 25 MG TAB PO SCH ×2 (09:26→18:05)
[2021-12-15] MEDS: FOLIC ACID 1 MG TAB PO SCH (09:26)
[2021-12-15] MEDS: PANTOPRAZOLE SOD 40 MG TABEC PO SCH (09:26)
[2021-12-15] MEDS: INSULIN LISPRO 100 UNIT/1 ML 3ML VIAL SQ SCH ×3 (09:29→18:06)
[2021-12-15 11:38] VITALS: BP 112/60
[2021-12-15] MEDS: HYDROCODONE/APAP 7.5MG-325MG 1 EA TAB PO PRN (13:15)
[2021-12-15 16:24] VITALS: BP 115/61
== END 2021-12-15 18:05 | disposition home or self-care (01) | DRG 656 ==
LOC: MED/SURG2 01:20 → OBSVTOIN 08:50 → IMCU 12-06 16:41 → ICU 12-06 22:17 → MED/SURG2 12-11 20:11
PROVIDERS: ADMIT Internal Medicine; ATTEND Internal Medicine
PROC: 30233N1 Transfusion of Nonautologous Red Blood Cells into Peripheral Vein, Percutaneous Approach (ICD-10-PCS; 2021-11-29)
PROC: 3E0H8KZ Introduction of Other Diagnostic Substance into Lower GI, Via Natural or Artificial Opening Endoscopic (ICD-10-PCS; 2021-12-02)
PROC: 0DBK8ZX Excision of Ascending Colon, Via Natural or Artificial Opening Endoscopic, Diagnostic (ICD-10-PCS; principal; 2021-12-02 12:00)
PROC: 0TT00ZZ Resection of Right Kidney, Open Approach (ICD-10-PCS; 2021-12-06 17:45)
PROC: 0DTF0ZZ Resection of Right Large Intestine, Open Approach (ICD-10-PCS; 2021-12-06 17:45)
DX: C64.1 Malignant neoplasm of right kidney, except renal pelvis (principal); I81 Portal vein thrombosis; C78.5 Secondary malignant neoplasm of large intestine and rectum; N17.9 Acute kidney failure, unspecified; E87.2 Acidosis; R18.8 Other ascites; C78.7 Secondary malignant neoplasm of liver and intrahepatic bile duct; E87.5 Hyperkalemia; Z79.4 Long term (current) use of insulin; E11.65 Type 2 diabetes mellitus with hyperglycemia; D50.9 Iron deficiency anemia, unspecified; Q84.0 Congenital alopecia; R91.8 Other nonspecific abnormal finding of lung field; N40.0 Benign prostatic hyperplasia without lower urinary tract symptoms; E11.21 Type 2 diabetes mellitus with diabetic nephropathy; E83.51 Hypocalcemia; E53.8 Deficiency of other specified B group vitamins; N99.0 Postprocedural (acute) (chronic) kidney failure; Z20.822 Contact with and (suspected) exposure to COVID-19; E11.22 Type 2 diabetes mellitus with diabetic chronic kidney disease; N18.32 Chronic kidney disease, stage 3b
CPT/HCPCS: 36415; 45378; 45384; 71045; 71250; 74177; 74185; 76770; 80048; 80053; 82378; 82607; 82728; 82746; 82948; 83036; 83540; 83735; 84100; 84132; 84439; 84443; 84466; 85025; 85045; 85610; 86850; 86900; 86920; 88305; 88307; 88342; 94799; 96360; 96361; 96372; 97139; 99251; J0610; J0694; J1100; J1170; J1756; J1815; J1817; J1980; J2001; J2150; J2250; J2270; J2370; J2405; J2916; J3010; J3370; J3420; J3475; J7030; J7040; J7042; J7050; J7070; J7799; P9016; P9045; Q9967

== ENCOUNTER → 2022-01-11 | Outpatient (CLI) | payer BC ==
[~2022-01-11] MED LIST: ALDACTONE25 MG PO; DIATRIZOATE MEGL/DIATRIZOA SOD 30 ML BTL PO ONE; DIOVAN160 MG PO; FIASP 100100 UNIT/1 SC; FUROSEMIDE40 MG PO; JARDIANCE10 MG PO; LOPID600 MG PO; METFORMIN HCL500 MG PO; PROTONIX20 MG PO; SIMVASTATIN20 MG PO
== END ==
LOC: CT 07:40
PROVIDERS: ATTEND Internal Medicine Medical Oncology
DX: C65.1 Malignant neoplasm of right renal pelvis (principal)
CPT/HCPCS: 71250; 74176; Q9963

== ENCOUNTER → 2022-07-02 | Outpatient (CLI) | payer BC ==
[~2022-07-02] MED LIST changes: -DIATRIZOATE MEGL/DIATRIZOA SOD 30 ML BTL PO ONE
== END ==
LOC: CT 13:38
PROVIDERS: ATTEND Internal Medicine Medical Oncology
DX: C65.1 Malignant neoplasm of right renal pelvis (principal)
CPT/HCPCS: 71250; 74176

== ENCOUNTER 2022-08-07 10:30 | Inpatient (IN) | payer BC ==
[~2022-08-07] VITALS: Ht 172.7 cm; Wt 81.6 kg
[2022-08-07 11:24] LABS: BASOPHILS # (AUTO) 0.1 (0.0-0.1); BASOPHILS % 0.8 % (0.0-1.0); EOSINOPHILS # (AUTO) 0.1 (0.0-0.4); HEMATOCRIT 22.1 % (38.2-49.6); LYMPHOCYTES # (AUTO) 1.1 (1.0-3.2); LYMPHOCYTES % 11.9 % (18.0-39.1); MEAN CORPUSCULAR HEMOGLOBIN 26.9 pg (28-32); MEAN CORPUSCULAR HGB CONC 29.9 g/dL (31-35); MEAN CORPUSCULAR VOLUME 90.2 fL (81-99); MONOCYTES # (AUTO) 0.8 (0.2-0.8); NEUTROPHILS # (AUTO) 6.7 (2.1-6.9); NEUTROPHILS % 74.6 % (38.7-80.0); PLATELET COUNT 342 x10e3/uL (140-360); RED BLOOD COUNT 2.45 x10e6/uL (4.3-5.7); RED CELL DISTRIBUTION WIDTH 19.1 % (11.7-14.4)
[2022-08-07 11:31] LABS: HEMOGLOBIN 6.6 g/dL (14.0-18.0)
[2022-08-07 11:36] LABS: ALBUMIN 3.7 g/dL (3.5-5.0); ALBUMIN/GLOBULIN RATIO 1.3 (0.8-2.0); ANION GAP 17.7 mmol/L (8-16); CALCIUM 9.6 mg/dL (8.4-10.2); CREATININE, SERUM 2.04 mg/dL (0.72-1.25); POTASSIUM 4.7 mmol/L (3.5-5.1)
[2022-08-07] MEDS ORDERED: INSULIN REGULAR, HUMAN 100 UNIT/1 ML IV ONE (11:45)
[2022-08-07] MEDS ORDERED: ASPIRIN 81 MG CHEW TAB PO ONE (11:45)
[2022-08-07] MEDS ORDERED: SODIUM CHLORIDE 0.9% 250ML 250 ML IV ONE (11:45)
[2022-08-07 12:15] LABS: INR 1.02; PROTHROMBIN TIME 13.9 seconds (11.9-14.5)
[2022-08-07 12:16] LABS: PARTIAL THROMBOPLASTIN TIME 28.9 seconds (23.8-35.5)
[2022-08-07 12:19] LABS: ANISOCYTOSIS MODERATE; HYPOCHROMASIA MODERATE; MICROCYTOSIS SLIGHT; PLATELET ESTIMATE ADEQUATE; PLATELET MORPHOLOGY COMMENT NORMAL; RBC MORPHOLOGY COMMENT ABNORMAL
[2022-08-07 12:28] LABS: CREATINE KINASE 57 IU/L (30-200)
[2022-08-07] MEDS ORDERED: SODIUM CHLORIDE FLUSH 10 ML SYR INJ PRN (13:15)
[2022-08-07] MEDS ORDERED: ONDANSETRON HCL INJ 2MG/ML 2ML 2 MG/ML VIAL IV PRN (13:15)
[2022-08-07] MEDS ORDERED: DEXTROSE 50% SYRINGE 50 ML IV PRN (21:45)
[2022-08-07] MEDS ORDERED: HYDRALAZINE HCL 20 MG/ML VIAL IV PRN (21:45)
[2022-08-07] MEDS ORDERED: ACETAMINOPHEN 325 MG TAB PO PRN (21:45)
[2022-08-07] MEDS ORDERED: SORAFENIB200 MG (21:52)
[2022-08-07] MEDS ORDERED: HUMALOG100 UNIT/3 (21:52)
[2022-08-07 22:03] VITALS: BP 108/57
[2022-08-07] MEDS: INSULIN LISPRO 100 UNIT/1 ML 3ML VIAL SQ SCH (22:33)
[2022-08-07 22:38] LABS: HEMATOCRIT 26.9 % (38.2-49.6); HEMOGLOBIN 8.3 g/dL (14.0-18.0)
[2022-08-08] VITALS: BP 108/57
[2022-08-08 01:54] VITALS: BP 108/57
[2022-08-08 05:00] VITALS: BP 116/61
[2022-08-08 06:08] LABS: BASOPHILS # (AUTO) 0.1 (0.0-0.1); BASOPHILS % 1.2 % (0.0-1.0); EOSINOPHILS # (AUTO) 0.3 (0.0-0.4); EOSINOPHILS % 3.4 % (0.0-6.0); HEMATOCRIT 28.1 % (38.2-49.6); HEMOGLOBIN 8.5 g/dL (14.0-18.0); LYMPHOCYTES # (AUTO) 0.7 (1.0-3.2); LYMPHOCYTES % 8.1 % (18.0-39.1); MEAN CORPUSCULAR HEMOGLOBIN 26.9 pg (28-32); MEAN CORPUSCULAR HGB CONC 30.2 g/dL (31-35); MEAN CORPUSCULAR VOLUME 88.9 fL (81-99); MONOCYTES # (AUTO) 0.7 (0.2-0.8); MONOCYTES % 8.4 % (4.4-11.3); NEUTROPHILS # (AUTO) 6.4 (2.1-6.9); NEUTROPHILS % 77.9 % (38.7-80.0); PLATELET COUNT 226 x10e3/uL (140-360); RED BLOOD COUNT 3.16 x10e6/uL (4.3-5.7); RED CELL DISTRIBUTION WIDTH 17.8 % (11.7-14.4)
[2022-08-08 06:35] LABS: ALBUMIN 3.3 g/dL (3.5-5.0); ALBUMIN/GLOBULIN RATIO 1.2 (0.8-2.0); ANION GAP 13.9 mmol/L (8-16); CALCIUM 9.4 mg/dL (8.4-10.2); CREATININE, SERUM 1.95 mg/dL (0.72-1.25); POTASSIUM 4.9 mmol/L (3.5-5.1)
[2022-08-08 08:00] VITALS: BP 116/62
[2022-08-08] MEDS ORDERED: TOUJEO SOL300 UNIT/1 SQ (08:21)
[2022-08-08] MEDS: INSULIN LISPRO 100 UNIT/1 ML 3ML VIAL SQ SCH ×3 (08:23→16:30)
[2022-08-08 08:39] VITALS: BP 116/62
[2022-08-08 12:00] VITALS: BP 112/60
[2022-08-08] MEDS ORDERED: ONDANSETRON HCL 4 MG ORAL DISINTEGRATING TAB PO PRN (17:15)
== END 2022-08-08 16:40 | disposition home or self-care (01) | DRG 812 ==
LOC: ER 11:19 → ERHOLD 13:14 → MED/SURG 20:28
PROVIDERS: ADMIT Internal Medicine; ATTEND Internal Medicine
PROC: 30233N1 Transfusion of Nonautologous Red Blood Cells into Peripheral Vein, Percutaneous Approach (ICD-10-PCS; principal; 2022-08-07)
DX: D64.9 Anemia, unspecified (principal); K92.1 Melena; E11.69 Type 2 diabetes mellitus with other specified complication; E78.5 Hyperlipidemia, unspecified; Z20.822 Contact with and (suspected) exposure to COVID-19; E11.65 Type 2 diabetes mellitus with hyperglycemia; Z79.4 Long term (current) use of insulin; Z85.528 Personal history of other malignant neoplasm of kidney; E11.22 Type 2 diabetes mellitus with diabetic chronic kidney disease; I12.9 Hypertensive chronic kidney disease with stage 1 through stage 4 chronic kidney disease, or unspecified chronic kidney disease; N18.9 Chronic kidney disease, unspecified
CPT/HCPCS: 36415; 80053; 82270; 82550; 82553; 82948; 84484; 85014; 85018; 85025; 85610; 85730; 86850; 86900; 86920; 93005; 94799; 99284; J7050; P9016

== ENCOUNTER → 2022-09-10 | Outpatient (CLI) | payer BC ==
[2022-09-05 16:08] LABS: BASOPHILS % 0.6 % (0.0-1.0); EOSINOPHILS # (AUTO) 0.1 (0.0-0.4); EOSINOPHILS % 2.4 % (0.0-6.0); LYMPHOCYTES # (AUTO) 0.8 (1.0-3.2); LYMPHOCYTES % 15.5 % (18.0-39.1); MEAN CORPUSCULAR HEMOGLOBIN 26.4 pg (28-32); MEAN CORPUSCULAR HGB CONC 28.6 g/dL (31-35); MEAN CORPUSCULAR VOLUME 92.1 fL (81-99); MONOCYTES # (AUTO) 0.4 (0.2-0.8); MONOCYTES % 7.9 % (4.4-11.3); NEUTROPHILS # (AUTO) 3.9 (2.1-6.9); NEUTROPHILS % 72.3 % (38.7-80.0); PLATELET COUNT 152 x10e3/uL (140-360); RED BLOOD COUNT 2.39 x10e6/uL (4.3-5.7)
[2022-09-05 16:12] LABS: HEMOGLOBIN 6.3 g/dL (14.0-18.0)
[~2022-09-10] MED LIST changes: +HUMALOG100 UNIT/3; +SORAFENIB200 MG; +TOUJEO SOL300 UNIT/1 SQ; +VITAMIN D310 MCG PO
== END | disposition home or self-care (01) ==
LOC: OR 08:22 → EDSTATUS 10:00 → LAB 12:04
PROVIDERS: ATTEND Internal Medicine Gastroenterology
DX: D64.9 Anemia, unspecified (principal); Z85.038 Personal history of other malignant neoplasm of large intestine; K29.80 Duodenitis without bleeding; R19.5 Other fecal abnormalities; Z86.010 Personal history of colon polyps; K74.60 Unspecified cirrhosis of liver; Z01.812 Encounter for preprocedural laboratory examination; Z53.8 Procedure and treatment not carried out for other reasons
CPT/HCPCS: 36415; 82948; 85025

== ENCOUNTER → 2022-09-24 | Day surgery (SDC) | payer BC ==
[2022-09-17 15:53] LABS: BASOPHILS % 0.4 % (0.0-1.0); EOSINOPHILS # (AUTO) 0.1 (0.0-0.4); EOSINOPHILS % 1.7 % (0.0-6.0); HEMATOCRIT 23.7 % (38.2-49.6); HEMOGLOBIN 7.3 g/dL (14.0-18.0); LYMPHOCYTES # (AUTO) 1.4 (1.0-3.2); LYMPHOCYTES % 19.4 % (18.0-39.1); MEAN CORPUSCULAR HEMOGLOBIN 27.8 pg (28-32); MEAN CORPUSCULAR HGB CONC 30.8 g/dL (31-35); MEAN CORPUSCULAR VOLUME 90.1 fL (81-99); MONOCYTES # (AUTO) 0.4 (0.2-0.8); MONOCYTES % 5.6 % (4.4-11.3); NEUTROPHILS # (AUTO) 5.1 (2.1-6.9); NEUTROPHILS % 72.5 % (38.7-80.0); PLATELET COUNT 342 x10e3/uL (140-360); RED BLOOD COUNT 2.63 x10e6/uL (4.3-5.7); RED CELL DISTRIBUTION WIDTH 19.7 % (11.7-14.4)
[2022-09-17 16:04] LABS: INR 0.97; PROTHROMBIN TIME 13.4 seconds (11.9-14.5)
[2022-09-17 16:05] LABS: PARTIAL THROMBOPLASTIN TIME 36.4 seconds (23.8-35.5)
[2022-09-17 16:16] LABS: ALBUMIN 3.2 g/dL (3.5-5.0); ALBUMIN/GLOBULIN RATIO 0.9 (0.8-2.0); ANION GAP 15.4 mmol/L (8-16); CALCIUM 8.8 mg/dL (8.4-10.2); CREATININE, SERUM 1.39 mg/dL (0.72-1.25); POTASSIUM 4.4 mmol/L (3.5-5.1)
[~2022-09-24] MED LIST changes: +HYOSCYAMINE SULFATE 0.5 MG/ML INJ ONE; +LIDOCAINE HCL 2% LOCAL INJ 5 ML SDV VIAL INJ ONE; +PROPOFOL IV EMULSION 10 MG/ML 20 ML VIAL ONE; +PROPRANOLOL HCL 10 MG TAB PO ONE; +SIMETHICONE 40 MG/0.6 ML BTL ONE
[2022-09-24 12:58] VITALS: TEMP 98
[2022-09-24 13:40] VITALS: BP 133/88; PULSE 91; RESP 16; O2SAT 100
== END | disposition home or self-care (01) ==
LOC: OR 08:43
PROVIDERS: ATTEND Internal Medicine Gastroenterology
DX: D64.9 Anemia, unspecified (principal); Z85.038 Personal history of other malignant neoplasm of large intestine; K29.70 Gastritis, unspecified, without bleeding; K29.80 Duodenitis without bleeding; K74.60 Unspecified cirrhosis of liver; I85.10 Secondary esophageal varices without bleeding; Z98.0 Intestinal bypass and anastomosis status; K57.30 Diverticulosis of large intestine without perforation or abscess without bleeding; K64.8 Other hemorrhoids; E78.5 Hyperlipidemia, unspecified; E11.9 Type 2 diabetes mellitus without complications; Z01.812 Encounter for preprocedural laboratory examination; Z79.4 Long term (current) use of insulin; Z79.899 Other long term (current) drug therapy
CPT/HCPCS: 36415 ×2; 43239; 45378; 80053; 82948; 85025; 85610; 85730; C9113; J1980; J2001; J2704